=== PATIENT | male | born 1970 | race Caucasian/White ===

== ENCOUNTER → 2018-04-28 | Outpatient (REF) | payer SELFPAY | LOC: M LAB REF 13:20 | PROVIDERS: ATTEND Podiatrist | DX: L03.031 Cellulitis of right toe (principal) ==

== ENCOUNTER → 2020-07-03 | Outpatient (REF) | payer OTHER | LOC: M LAB REF 17:15 | PROVIDERS: ATTEND Physician Assistant | DX: J02.9 Acute pharyngitis, unspecified (principal) ==

== ENCOUNTER → 2021-01-27 | Outpatient (REF) | payer OTHER | LOC: M LAB REF 21:23 | PROVIDERS: ATTEND Physician Assistant | DX: J02.9 Acute pharyngitis, unspecified (principal) ==

== ENCOUNTER → 2021-10-03 | Outpatient (CLI) | payer SELFPAY | LOC: M WUC 08:51 | DX: R22.31 Localized swelling, mass and lump, right upper limb (principal) ==

== ENCOUNTER → 2024-09-15 | Outpatient (CLI) | payer OTHER | LOC: M RAD 12:22 | PROVIDERS: ATTEND Nurse Practitioner Family | DX: M25.562 Pain in left knee (principal) ==

== ENCOUNTER → 2024-12-25 | Outpatient (REF) | payer OTHER ==
[2024-12-25 17:50] LABS: BASO # 0.1 10^3/uL (0.0-0.2); BASO % 0.8 % (0.0-1.0); EOS # 0.4 10^3/uL (0.0-0.5); EOS % 4.8 % (0.0-3.0); LYMPH # 2.1 10^3/uL (1.5-5.0); LYMPH % 24.2 % (24.0-44.0); MONO # 0.8 10^3/uL (0.0-0.8); MONO % 8.9 % (2.0-8.0); NEUTROPHILS # 5.4 10^3/uL (1.5-8.5); NEUTROPHILS % 61.2 % (36.0-66.0); PLATELET COUNT, AUTOMATED 252 10^3/uL (150-450)
[2024-12-25 17:54] LABS: CREATININE, URINE 95.2 MG/DL
[2024-12-25 17:55] LABS: MALB URINE SIEMENS < 3.0 MG/L
[2024-12-25 17:56] LABS: AMORPHOUS SEDIMENT SMALL (NEGATIVE); APPEARANCE, URINE CLOUDY (CLEAR); BACTERIA, URINE AUTO NEGATIVE (NEGATIVE); BILIRUBIN, URINE AUTO NEGATIVE (NEGATIVE); BLOOD, URINE BLOOD NEGATIVE (NEGATIVE); GLUCOSE, URINE (UA) AUTO NEGATIVE (NEGATIVE); KETONE, URINE AUTO NEGATIVE (NEGATIVE); LEUKOCYTE ESTERASE, URINE AUTO NEGATIVE (NEGATIVE); MUCUS, URINE SMALL (NEGATIVE); NITRITE, URINE AUTO NEGATIVE (NEGATIVE); PROTEIN, URINE AUTO NEGATIVE (NEGATIVE); RBC, URINE AUTO 0 /HPF (0-3); SPECIFIC GRAVITY URINE AUTO 1.013 (1.002-1.035); SQUAMOUS EPITHELIAL CELL UR AU 0 /HPF (0-6); UROBILINOGEN, URINE AUTO 0.2 mg/dL (0.0-2.0); WBC, URINE AUTO 2 /HPF (0-3)
[2024-12-25 17:57] LABS: ALT/SGPT 56 U/L (7.0-40); AST/SGOT 31 U/L (<34); C REACTIVE PROTEIN QUANTITATIV < 0.50 MG/DL (<1.0); CALCIUM LEVEL 9.7 MG/DL (8.5-10.1); CARBON DIOXIDE LEVEL 29 MMOL/L (20-31); CHLORIDE LEVEL 102 MMOL/L (98-107); CHOLESTEROL LEVEL 259 MG/DL (<200); CHOLESTEROL RISK RATIO 5.69 (<5); CPK CREATINE PHOSPHOKINASE 87 U/L (46-171); CREATININE FOR GFR 0.96 MG/DL (0.70-1.30); GLOMERULAR FILTRATION RATE > 90.0 (>56); LDL CHOLESTEROL 143.1 MG/DL (<100); MAGNESIUM LEVEL 2.0 MG/DL (1.8-2.4); NON-HDL-C 213.5 MG/DL; POTASSIUM SERUM 4.1 MMOL/L (3.5-5.1); SODIUM LEVEL 141 MMOL/L (136-145); TRIGLYCERIDES LEVEL 352 MG/DL (<150)
[2024-12-25 17:59] LABS: PSA SCREENING 1.42 NG/ML (< 4.00)
[2024-12-25 18:38] LABS: ESTIMATED AVERAGE GLUCOSE 143.0 MG/DL (60-110)
[2024-12-25 19:20] LABS: Trichomonas vaginalis (AMP) NOT DETECTED (NEGATIVE)
[2024-12-25 19:44] LABS: GC DNA AMPLIFICATION NEGATIVE (NEGATIVE)
== END ==
LOC: M LAB REF 16:13
PROVIDERS: ATTEND Nurse Practitioner Family
DX: I10 Essential (primary) hypertension (principal); E66.812 Obesity, class 2; R53.83 Other fatigue; Z11.9 Encounter for screening for infectious and parasitic diseases, unspecified; Z12.5 Encounter for screening for malignant neoplasm of prostate; M62.81 Muscle weakness (generalized)

== ENCOUNTER → 2025-01-08 | Outpatient (CLI) | payer OTHER | LOC: M PLAIMG 13:42 | PROVIDERS: ATTEND Neuromusculoskeletal Medicine, Sports Medicine | DX: S83.241D Other tear of medial meniscus, current injury, right knee, subsequent encounter (principal) ==